=== PATIENT | male | born 1990 | race Caucasian/White ===

== ENCOUNTER → 2016-11-18 | Outpatient (CLI) | payer BC, OTHER ==
--- NOTE | 2016-11-18 15:03 | MRI ---
EXAM DESCRIPTION: MRI right hand CLINICAL HISTORY: Muscle weakness. Bilateral hand pain. COMPARISON: None. TECHNIQUE: Multiplanar, multisequence MR images of the right hand FINDINGS: No diagnostic abnormality of the carpal tunnel. There is mild bowing of the flexor retinaculum. No signal abnormality of the median nerve. No tenosynovitis or intrinsic tendon signal abnormality. Intrinsic muscles of the hand are normal in morphology and signal. No fatty filtration, volume loss or edema A ganglion originates along the volar distal carpus between the capitate and hamate. Approximate measurements 6 x 6 x 8 mm. There is mild osseous irregularity and edema in the adjacent capitate Axial T2 images demonstrate a tiny dorsal ganglion overlying the lunate axial T2 series 401 image 32 measuring about 4 x 3 mm. No other periarticular ganglion No tenosynovitis. Extensor tendons are normal Triangular fibrocartilage complex is normal. Extrinsic and intrinsic ligaments of the wrist are intact No focal osteochondral lesion of the wrist IMPRESSION: Focal osseous irregularity and edema on a degenerative basis in the capitate at the marginal articulation with the distal hamate. A ganglion originates from between these 2 bones, located along the floor of the distal carpal tunnel. Tiny dorsal ganglion overlying the lunate No diagnostic abnormality of the median nerve or ulnar nerve. No muscle abnormality Electronically signed by: Leonardo Jo MD 11/18/2016 3:02 PM CDT
== END ==
LOC: MRI 09:45
PROVIDERS: ATTEND Nurse Practitioner Family
DX: M62.81 Muscle weakness (generalized) (principal)

== ENCOUNTER 2019-02-22 10:53 | Emergency (ER) | payer BC, OTHER ==
--- NOTE | 2019-02-22 11:20 | ED.PDOC ---
History of Present Illness - General Chief Complaint: Upper Extremity Injury Time Seen by Provider: 02/22/19 11:13 Additional Information: Patient with chief complaint of foreign body in left small finger. The patient was loading something onto his trailer and his hand rubbed along the side of the trailer and a stray, thin linear piece of metal became lodged in patient's finger. Patient denies any other injury. He rates the pain as mild at rest if the object is not moved in his finger but is moderate with motion. Patient indicates his last tetanus shot was in 2011. Patient denies any other injuries or medical concerns. - History of Present Illness Allergies/Adverse Reactions: Allergies NO KNOWN ALLERGY Allergy (Verified 01/23/15 22:04) Home Medications: Ambulatory Orders Colchicine 0.6 mg PO BID #20 tab 01/23/15 Indomethacin ER [Indocin ER] 75 mg PO BID #20 cap 01/23/15 Probenecid 500 mg PO BID #20 tab 01/23/15 predniSONE 40 mg PO DAILY #10 tab 01/23/15 Cephalexin Monohydrate [Keflex] 500 mg PO Q6H #28 cap 02/22/19 Review of Systems - Review of Systems Constitutional: States: no symptoms reported EENTM: States: no symptoms reported Respiratory: States: no symptoms reported Cardiology: States: no symptoms reported Gastrointestinal/Abdominal: States: no symptoms reported Genitourinary: States: no symptoms reported Musculoskeletal: States: see HPI Skin: States: no symptoms reported Neurological: States: no symptoms reported Endocrine: States: no symptoms reported Hematologic/Lymphatic: States: no symptoms reported All other Systems: Reviewed and Negative Past Medical History (General) - Patient Medical History Hx Seizures: No - Vaccination History Hx Tetanus, Diphtheria Vaccination: Yes - Female History Patient : No Family Medical History - Family History Father Family History: No Known Living Status: Still Living Physical Exam - Physical Exam General Appearance: Alert, Comfortable, No apparent distress Head Injury: no evidence of injury Neck Exam: normal inspection Extremity Exam: other - Patient with a long thin piece of metal protruding from the volar ulnar aspect of the left proximal phalanx small finger. There is no active bleeding. Metal freely is able to move from side to side with manipulation, it is not impacted in the bone. The metal object is best described as long and thin, 3-4 mm in diameter, less than 1 mm in width, approximately 3 inches protruding. Normal sensation to light touch radially and ulnarly. Full range of motion small finger. Neurologic: normal mood/affect Skin Exam: normal color Progress - Progress Progress: 02/22/19 13:22 Finger x-rayed and foreign body noted to be linear. Using axial traction with gentle pressure the foreign body was removed without difficulty or complication. There is no bleeding. Repeat imaging showed what appears to be a tiny metal speck that is insignificant. Patient's hand washed with copious soap and Water and then the wound was irrigated with 30 mL of normal saline. Dressing applied. I discussed with the patient return to ED precautions to include worsening pain, redness, discharge from the site. I discussed with patient that I will discharge him home on po antibiotics and it is important that he takes these medications to minimize risk of infection because his hand was very dirty at the time of foreign body puncture. Vital signs stable, patient NAD and appears clinically well, believe patient is safe for discharge with outpatient follow- up. Follow-up instructions, discharge instructions, return to ED warnings given. Patient voices understanding and willingness to comply with instructions as discussed. All questions answered. Patient is happy with plan. 02/22/19 13:31 Procedures - Foreign Body Removal Foreign Body Removal: other - metal shard Departure - Departure Clinical Impression: Foreign body of finger of left hand, superficial Time of Disposition: 13:26 Disposition: Discharge to Home or Self Care Condition: Good Departure Forms: ED Discharge - Pt. Copy, Patient Portal Self Enrollment Instructions: Foreign Body in Skin, Foreign Body in Skin (DC), Removal of Foreign Body in Skin Referrals: Rosa Kate NP [Primary Care Provider] - 1-5 Days Prescriptions: Cephalexin Monohydrate [Keflex] 500 mg PO Q6H #28 cap Home Medications: Ambulatory Orders Colchicine 0.6 mg PO BID #20 tab 01/23/15 Indomethacin ER [Indocin ER] 75 mg PO BID #20 cap 01/23/15 Probenecid 500 mg PO BID #20 tab 01/23/15 predniSONE 40 mg PO DAILY #10 tab 01/23/15 Cephalexin Monohydrate [Keflex] 500 mg PO Q6H #28 cap 02/22/19
[2019-02-22 11:24] VITALS: TEMP 99.2
[2019-02-22] MEDS ORDERED: WATER FOR INJ 10 ML VIAL INJ ONE (11:49)
[2019-02-22] MEDS: ceFAZolin SODIUM 1 GM VIAL IM ONE (11:56)
[2019-02-22] MEDS: HYDROcodone 10MG/APAP 325MG 1 EA TAB PO ONE (11:57)
[2019-02-22] MEDS: TETANUS-DIPHTHERIA TOXOIDS (TD 1 EA SYG IM ONE (11:57)
[2019-02-22] MEDS: TETANUS,DIPHTHERIA,PERTUSSIS 1 EA SYG IM ONE (11:58)
--- NOTE | 2019-02-22 12:03 | RAD ---
EXAM DESCRIPTION: Fingers,Left CLINICAL HISTORY: FB small finger COMPARISON: None. TECHNIQUE: 3 views left FINDINGS: A metallic foreign body is observed in the ulnar soft tissues of the fifth digit of left hand adjacent to the proximal phalanx. No bony injury is seen. IMPRESSION: A metallic foreign body is observed in the fifth digit of left hand. Electronically signed by: Fabián Aleman MD 02/22/2019 12:01 PM [facility]
[2019-02-22 12:49] VITALS: O2SAT 96
--- NOTE | 2019-02-22 13:08 | RAD ---
EXAM DESCRIPTION: Fingers,Left CLINICAL HISTORY: 28 years Male, L SF s/p FB removal COMPARISON: Left finger series earlier same day FINDINGS: 3 views of the left fifth finger show a punctate radiopaque foreign body or debris in the soft tissues just deep to the skin surface anterior to the proximal phalanx at or near the entry site of the larger foreign body seen on the previous exam. No additional residual foreign body. No fracture or malalignment. IMPRESSION: Persistent punctate foreign body/debris as detailed above. Electronically signed by: Nahid Lucero MD 02/22/2019 1:06 PM [facility]
[2019-02-22] MEDS: BACITRACIN 0.9 GM UD PCKT TOP ONE (13:43)
[2019-02-22 13:47] VITALS: BP 126/94
[2019-02-23] MEDS: LIDOCAINE 1% 10 ML VIAL INJ ONE (10:46)
== END 2019-02-22 13:47 | disposition home or self-care (01) ==
LOC: ER 10:53
DX: S60.457A Superficial foreign body of left little finger, initial encounter (principal); W45.8XXA Other foreign body or object entering through skin, initial encounter; Z23 Encounter for immunization; Y92.9 Unspecified place or not applicable
CPT/HCPCS: 73140; 90471; 90715; A4216; J0690